=== PATIENT | female | born 1960 | race Caucasian/White ===

== ENCOUNTER 2020-06-28 14:26 | Emergency (ER) | payer BC, SELFPAY ==
[2020-06-28 14:46] VITALS: BP 124/89; PULSE 97; RESP 16; TEMP 36.8; O2SAT 97; BMI 28.3
--- NOTE | 2020-06-28 16:30 | W.ED.NAVMDI ---
Documented by User: [email or web address] Parker 06/29/20 07:23 HPI - Nausea/Vomiting/Diarrhea General: Chief complaint: Nausea/Vomiting/Diarrhea Stated complaint: VOMITING Time Seen by Provider: 06/28/20 15:33 History of Present Illness: HPI Narrative: 59-year-old female patient presents to the emergency department with acute onset of nausea vomiting. Reports started at 5 AM. Spontaneous onset. 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 She reports previous symptoms in the past, diagnosed with gastroenteritis. 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 She reports has to have a COVID test before she is able to return to work. MD elicited complaint: nausea, vomiting and abdominal pain Onset (ago): hour(s) (12) Description of vomiting: bilious Associated nausea: Yes Associated abdominal pain: Yes Location of pain: Diffuse Pain consistency: intermittent Severity: mild Pain scale (0-10): 2 Quality: aching Exacerbating factors: eating, vomiting and movement Relieving factors: rest Associated symtoms: Reports anorexia and nausea; Denies chest pain, diaphoresis, dysuria, headache(s) or palpitations Review of Systems General: Reports: 10 or more systems reviewed and unremarkable except in HPI and below Const: Denies: fever(s), chills or diaphoresis Eyes: Denies: blurry vision or eye redness ENMT: Denies: throat pain, dental pain or disequilibrium Card: Denies: chest pain, palpitations or irregular heart rhythm Resp: Denies: dyspnea, productive cough, non-productive cough or wheezing GI: Reports: abdominal pain, nausea and vomiting : Denies: difficulty voiding or dysuria Musc: Denies: back pain Skin/Breast: Denies: rash or pruritus Neuro: Denies: headache(s), weakness in extremities or behavioral changes Jose/Lymph: Denies: easy bruising Physical Exam Const: COMMON NORMALS: no acute distress, patient oriented x3 and alert GENERAL APPEARANCE: cooperative and well kempt ORIENTATION/CONSCIOUSNESS: Yes awake, Yes oriented to person, Yes oriented to place and Yes oriented to time HENMT: COMMON NORMALS: normocephalic, Normal external nose present and moist oral mucous membranes HEAD & SCALP: normocephalic NOSE: Normal external nose present Eye: COMMON NORMALS: Equal, round and reactive pupils present and EOMs intact bilaterally GENERAL EYE: appearance normal, both eyes and all related structures PUPIL: Yes Equal, round and reactive pupils present Neck/C-Spine: COMMON NORMALS: full ROM and no lymphadenopathy GENERAL: Yes normal visual inspection and Yes trachea midline CERVICAL SPINE: Yes cervical ROM normal Lymph: LYMPHATIC: no lymphadenopathy noted Chest: COMMONS NORMALS: normal inspection of the chest Resp: COMMON NORMALS: normal respiratory effort and clear to auscultation bilaterally AUSCULTATION: clear to auscultation bilaterally Cardio: COMMON NORMALS: regular rhythm, S1 normal heart sound present and S2 normal heart sound present RHYTHM: regular rhythm HEART SOUNDS: S1 normal heart sound present and S2 normal heart sound present GI: COMMON NORMALS: Soft to palpation INSPECTION: Yes normal to inspection AUSCULTATION: Yes Hypoactive bowel sounds present PALPATION: Yes Soft to palpation and Yes Tenderness to palpation present (GI) (Generalized, mild tenderness over the belly) : COMMON NORMALS: Yes no CVA tenderness BLADDER/KIDNEY EXAM: Yes no CVA tenderness Back/Pelvis: COMMON NORMALS: no CVA tenderness and thoracic and lumbar spine normal to inspection Extremity: COMMON NORMALS: normal to inspection and capillary refill normal Neuro: COMMON NORMALS: patient oriented x3 and no focal motor deficits SENSORIUM/ORIENTATION: Yes alert, Yes oriented to person, Yes oriented to place and Yes oriented to time Psych: COMMON NORMALS: mental status grossly normal, Normal thought process present and cooperative APPEARANCE: Yes well kempt ACTIVITY/MOTOR BEHAVIOR: Yes appropriate eye contact THOUGHT PROCESS: Normal thought process present Skin: COMMON NORMALS: no rashes or lesions noted and turgor normal GENERAL SKIN EXAM: no rashes or lesions noted and turgor normal Course ED course: 59-year-old female patient presents to the emergency department with nausea vomiting, onset at 5 AM this morning, labs and IV fluids have been ordered, labs pending, transfer of care to ANGELINA Cazares. Vital Signs: Vital signs: Vital Signs Temperature 98.4 F 06/28/20 23:22 Pulse Rate 84 06/28/20 23:22 Respiratory Rate 18 06/28/20 23:22 Blood Pressure 133/76 06/28/20 23:22 Pulse Oximetry 97 06/28/20 23:22 MDM - Nausea/Vomiting/Diarrhea Lab Data: Labs: Lab Results 06/28/20 06/28/20 06/28/20 Range/Units 17:32 17:48 17:48 WBC 8.6 (4.0-10.0) 10^3/ uL RBC 5.10 (4.1-5.3) 10^6/u L Hgb 15.2 (11.5-15.3) g/dL Hct 46.3 (37.0-47.0) % MCV 90.8 (81-99) fL MCH 29.8 (28.0-34.0) pg MCHC 32.8 (30.0-36.0) g/dL RDW 12.6 (12.1-15.1) % Plt Count 322 (130-400) 10^3/c mm MPV 9.9 (7.4-10.4) fL Neut % (Auto) 76.2 % Lymph % (Auto) 18.6 % [place] % (Auto) 4.1 % Eos % (Auto) 0.1 % Baso % (Auto) 0.5 % Neut # (Auto) 6.54 (1.8-7.7) 10^3/u L Lymph # (Auto) 1.6 (0.8-4.8) 10^3/u L [place] # (Auto) 0.4 (0.2-0.9) 10^3/u L Eos # (Auto) 0.0 (0.0-0.8) 10^3/u L Baso # (Auto) 0.0 (0.0-0.1) 10^3/u L Nucleated RBC % (a uto) 0 % Nucleated RBCs # 0.0 /100WBC Sodium 143 (136-145) mmol/L Potassium 3.8 (3.5-5.1) mmol/L Chloride 103 (98-107) mmol/L Carbon Dioxide 24 (22-29) mmol/L Anion Gap 19.8 H (5-19) BUN 11 (6-20) mg/dL Creatinine 0.6 (0.5-0.9) mg/dL GFR Calculation 103.0 (90-130) mL/min Glucose 110 (65-115) mg/dL Calculated Osmolal ity 296 H (285-295) mOsm/k g Calcium 10.3 (8.5-10.5) mg/dL Total Bilirubin 0.4 (0.15-1.2) mg/dL AST 19 (0-32) U/L ALT 15 (0-33) U/L Alkaline Phosphata se 70 (35-105) IU/L Total Protein 7.4 (6.6-8.7) g/dL Albumin 4.8 (3.5-5.2) g/dL Globulin 2.6 (1.3-4.6) g/dL Lipase 37 (13-60) U/L Urine Color Yellow (Yellow) Urine Appearance Clear (CLEAR) Urine pH 9 H (5-7) Ur Specific Gravit y 1.015 (1.005-1.030) Urine Protein Neg (Negative) Urine Glucose (UA) Norm (Normal) Urine Ketones 2+ H (Negative) Urine Blood 2+ H (Negative) Urine Nitrate Negative (Negative) Urine Bilirubin Neg (Negative) Prot Sulfosalicyli c Acd Negative (Negative) Urine Urobilinogen Norm (Negative) mg/dL Ur Leukocyte Ally ase Negative (Negative) Urine RBC Rare (0-2) /hpf Urine WBC Rare (0-5) /hpf Ur Squamous Epith Cells 0-4 H (0-5) /hpf Amorphous Sediment 1+ /hpf Urine Bacteria Trace (NONE) /hpf Urine Mucus 1+ /hpf Discharge Plan Discharge Patient Disposition: Home Clinical Impression: Viral syndrome, Encounter for screening laboratory testing for COVID-19 virus Condition: Stable Prescriptions: New ondansetron 4 mg tablet,disintegrating 4 mg PO Q8H Qty: 21 RF: 0 No Action methocarbamol 500 mg tablet 500 mg PO TID 20 Days Qty: 60 RF: 1 simvastatin 20 mg tablet 20 mg PO DAILY 90 Days Qty: 90 RF: 3 albuterol sulfate [ProAir HFA] 90 mcg/actuation HFA aerosol inhaler 2 puff INHALATION Q6H PRN (Reason: shortness of breath or wheezing) 30 Days Qty: 18 RF: 11 naproxen [Naprosyn] 500 mg tablet 500 mg PO BID 30 Days Qty: 60 RF: 5 Discharge Orders: Discharge Order (Routine); Ordered 06/28/20 Ordered By: Davon Saleem Referrals: Omi Shelton MD [Primary Care Provider] - Discharge Diet: Advance as tolerated and Clear Liquid Discharge Activity: Increase activity as tolerated Patient Instructions: Viral Syndrome (ED) Activity Restrictions/Additional Instructions: Follow-up with medical provider as directed in 5-7 days. Tell your PCP about CT of the abdomen results showing 1.5 cm mass on the right kidney. Further outpatient MR imaging is recommended. Take medications as prescribed. Drink plenty of fluids and stay hydrated. Return to the ER or your medical provider if condition worsens. Please read and understand discharge instructions. If any questions, please ask. COVID testing was performed and sent to lab and results will be back in 2 to 3 days. Self quarantine for the next 3 days or up to 12 days pending on COVID testing results. Contact [facility] in 2 to 3 days to get results or [facility] will contact you with results. Take ibuprofen or Tylenol for fevers. Symptom management with tzwo-wch-pogxkie cough and nasal decongestant meds. Discharge Date/Time: 06/28/20 23:05 Sign Out Sign Out Data: Patient Sign Out occurred on 06/28/20 at 17:09. Patient's care was discussed, and care was transferred from to [facility] Cazares. 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 Course Reevaluation(s): Reevaluation #1: After couple doses of Zofran and Reglan patient's nausea did improve. She was able to drink some water and keep it down. Time: 22:21 Vital Signs: Vital signs: Vital Signs Temperature 98.4 F 06/28/20 23:22 Pulse Rate 84 06/28/20 23:22 Respiratory Rate 18 06/28/20 23:22 Blood Pressure 133/76 06/28/20 23:22 Pulse Oximetry 97 06/28/20 23:22 MDM - Nausea/Vomiting/Diarrhea MDM Narrative: Medical decision making narrative: 59-year-old female patient presents to the emergency department with nausea vomiting, onset at 5 AM this morning, labs and IV fluids have been ordered, labs pending, transfer of care to ANGELINA Cazares CBC, CMP and UA were unremarkable. Lipase 37. Patient's work wanted her to get Covid 19 testing before she could return. COVID-19 testing performed and sent to lab. IV fluids and multiple doses of Zofran and then some Reglan were used for nausea and symptoms improved. Patient had no episodes of emesis while here in the ED after getting antinausea meds. CT of abdomen was performed and showed no acute findings. Radiologist notated 1.5 cm lesion on right kidney and recommended further evaluation with an outpatient MRI. Patient was diagnosed with a viral syndrome and sent home with a prescription for Zofran. Patient told to self quarantine for the next 3 to 14 days pending COVID-19 results. Told patient about the lesion on right kidney and told her to follow-up with her PCP to get lesion further evaluated within the next 5 to 7 days. Return to ED precautions given. Patient understood and agreed with plan. Lab Data: Attestation: I reviewed the patient's lab results. Labs: Lab Results 06/28/20 06/28/20 06/28/20 Range/Units 17:32 17:48 17:48 WBC 8.6 (4.0-10.0) 10^3/ uL RBC 5.10 (4.1-5.3) 10^6/u L Hgb 15.2 (11.5-15.3) g/dL Hct 46.3 (37.0-47.0) % MCV 90.8 (81-99) fL MCH 29.8 (28.0-34.0) pg MCHC 32.8 (30.0-36.0) g/dL RDW 12.6 (12.1-15.1) % Plt Count 322 (130-400) 10^3/c mm MPV 9.9 (7.4-10.4) fL Neut % (Auto) 76.2 % Lymph % (Auto) 18.6 % [place] % (Auto) 4.1 % Eos % (Auto) 0.1 % Baso % (Auto) 0.5 % Neut # (Auto) 6.54 (1.8-7.7) 10^3/u L Lymph # (Auto) 1.6 (0.8-4.8) 10^3/u L [place] # (Auto) 0.4 (0.2-0.9) 10^3/u L Eos # (Auto) 0.0 (0.0-0.8) 10^3/u L Baso # (Auto) 0.0 (0.0-0.1) 10^3/u L Nucleated RBC % (a uto) 0 % Nucleated RBCs # 0.0 /100WBC Sodium 143 (136-145) mmol/L Potassium 3.8 (3.5-5.1) mmol/L Chloride 103 (98-107) mmol/L Carbon Dioxide 24 (22-29) mmol/L Anion Gap 19.8 H (5-19) BUN 11 (6-20) mg/dL Creatinine 0.6 (0.5-0.9) mg/dL GFR Calculation 103.0 (90-130) mL/min Glucose 110 (65-115) mg/dL Calculated Osmolal ity 296 H (285-295) mOsm/k g Calcium 10.3 (8.5-10.5) mg/dL Total Bilirubin 0.4 (0.15-1.2) mg/dL AST 19 (0-32) U/L ALT 15 (0-33) U/L Alkaline Phosphata se 70 (35-105) IU/L Total Protein 7.4 (6.6-8.7) g/dL Albumin 4.8 (3.5-5.2) g/dL Globulin 2.6 (1.3-4.6) g/dL Lipase 37 (13-60) U/L Urine Color Yellow (Yellow) Urine Appearance Clear (CLEAR) Urine pH 9 H (5-7) Ur Specific Gravit y 1.015 (1.005-1.030) Urine Protein Neg (Negative) Urine Glucose (UA) Norm (Normal) Urine Ketones 2+ H (Negative) Urine Blood 2+ H (Negative) Urine Nitrate Negative (Negative) Urine Bilirubin Neg (Negative) Prot Sulfosalicyli c Acd Negative (Negative) Urine Urobilinogen Norm (Negative) mg/dL Ur Leukocyte Ally ase Negative (Negative) Urine RBC Rare (0-2) /hpf Urine WBC Rare (0-5) /hpf Ur Squamous Epith Cells 0-4 H (0-5) /hpf Amorphous Sediment 1+ /hpf Urine Bacteria Trace (NONE) /hpf Urine Mucus 1+ /hpf Imaging Data^: CT Abd/Pel: Attestation: I personally reviewed and interpreted this imaging study as follows: Radiologist's impression: [address] [address] [address] Scan Report Signed Patient: Mackenzie Rodriguez Unit #: [id number] : 1960 Age/Sex: 59 / F ADM Date: 06/28/20 Loc: ER Room/Bed: Attending Dr: Ordering Provider/Ordering MD: Davon Saleem Date of Service: 06/28/20 Procedure(s): CT abdomen pelvis w con* [id number] Accession Number(s): [id number] Report Number: [id number] PROCEDURE INFORMATION: Exam: CT Abdomen And Pelvis With Contrast Exam date and time: 06/28/2020 8:40 PM Age: 59 years old Clinical indication: Abdominal pain; Patient HX: Low abd pain since am, n/v TECHNIQUE: Imaging protocol: Computed tomography of the abdomen and pelvis with intravenous contrast. Radiation optimization: All CT scans at this facility use at least one of these dose optimization techniques: automated exposure control; mA and/or kV adjustment per patient size (includes targeted exams where dose is matched to clinical indication); or iterative reconstruction. Contrast material: OMNI 300; Contrast volume: 95 ml; Contrast route: INTRAVENOUS (IV); COMPARISON: No relevant prior studies available. RADIATION DOSE METRICS: Total DLP (mGy-cm): 906.57 FINDINGS: Lungs: Minimal dependent airspace disease on the right favored to represent atelectasis although infiltrate is also possible. Mediastinal space: Small hiatal hernia. Liver: Normal. No mass. Gallbladder and bile ducts: Normal. No calcified stones. No ductal dilation. Pancreas: Normal. No ductal dilation. Spleen: Normal. No splenomegaly. Adrenals: Normal. No mass. Kidneys and ureters: 1.4 cm intermediate density lesion lower right kidney is indeterminate. Mild scar suggested lower right kidney. No hydronephrosis. Stomach and bowel: Unremarkable. No obstruction. No mucosal thickening. Appendix: No evidence of appendicitis. Intraperitoneal space: Unremarkable. No free air. No significant fluid collection. Vasculature: Minimal vascular calcifications are noted. No findings of abdominal aortic aneurysm. Lymph nodes: Unremarkable. No enlarged lymph nodes. Urinary bladder: Unremarkable as visualized. Reproductive: Unremarkable as visualized. Bones/joints: No acute fracture. Soft tissues: Unremarkable. CT/CT abdomen pelvis w con* [id number] IMPRESSION: No acute findings. Indeterminate lower right renal lesion; recommend MR without and with contrast or CT without and with contrast. MR is preferred for masses under 1.5 cm. Additional details as above. Radiation Dose CTDIVOL = (mGy): DLP = 906.57 (mGy-cm) Dictated By: Torres Giraldo MD Signed By: Torres Giraldo MD Signed Date/Time: 06/28/202136 DD/ 35 Discharge Plan Discharge Patient Disposition: Home Clinical Impression: Viral syndrome, Encounter for screening laboratory testing for COVID-19 virus Condition: Stable Prescriptions: New ondansetron 4 mg tablet,disintegrating 4 mg PO Q8H Qty: 21 RF: 0 No Action methocarbamol 500 mg tablet 500 mg PO TID 20 Days Qty: 60 RF: 1 simvastatin 20 mg tablet 20 mg PO DAILY 90 Days Qty: 90 RF: 3 albuterol sulfate [ProAir HFA] 90 mcg/actuation HFA aerosol inhaler 2 puff INHALATION Q6H PRN (Reason: shortness of breath or wheezing) 30 Days Qty: 18 RF: 11 naproxen [Naprosyn] 500 mg tablet 500 mg PO BID 30 Days Qty: 60 RF: 5 Discharge Orders: Discharge Order (Routine); Ordered 06/28/20 Ordered By: Davon Saleem Referrals: Omi Shelton MD [Primary Care Provider] - Discharge Diet: Advance as tolerated and Clear Liquid Discharge Activity: Increase activity as tolerated Patient Instructions: Viral Syndrome (ED) Activity Restrictions/Additional Instructions: Follow-up with medical provider as directed in 5-7 days. Tell your PCP about CT of the abdomen results showing 1.5 cm mass on the right kidney. Further outpatient MR imaging is recommended. Take medications as prescribed. Drink plenty of fluids and stay hydrated. Return to the ER or your medical provider if condition worsens. Please read and understand discharge instructions. If any questions, please ask. COVID testing was performed and sent to lab and results will be back in 2 to 3 days. Self quarantine for the next 3 days or up to 12 days pending on COVID testing results. Contact [facility] in 2 to 3 days to get results or [facility] will contact you with results. Take ibuprofen or Tylenol for fevers. Symptom management with [id number]-csgqicm cough and nasal decongestant meds. Discharge Date/Time: 06/28/20 23:05 Sign Out Sign Out Data: Patient Sign Out occurred on 06/28/20 at 17:09. Patient's care was discussed, and care was transferred from to ANGELINA Cazares. Coding Level of Care Code ED Pipeline Superintendent for Binta Billy Exam Comprehensive
[2020-06-28 18:03] LABS: Basophils % 0.5 %; Eosinophils % 0.1 %; Hematocrit 46.3 % (37.0-47.0); Hemoglobin 15.2 g/dL (11.5-15.3); Lymphocytes # 1.6 10^3/uL (0.8-4.8); Lymphocytes % 18.6 %; Mean Corpuscular HGB Conc 32.8 g/dL (30.0-36.0); Mean Corpuscular Hemoglobin 29.8 pg (28.0-34.0); Mean Corpuscular Volume 90.8 fL (81-99); Mean Platelet Volume 9.9 fL (7.4-10.4); Monocytes # 0.4 10^3/uL (0.2-0.9); Monocytes % 4.1 %; Neutrophils # 6.54 10^3/uL (1.8-7.7); Neutrophils % 76.2 %; Nucleated Red Blood Cells % 0 %; Platelet Count 322 10^3/cmm (130-400); Red Cell Distribution Width 12.6 % (12.1-15.1); White Blood Count 8.6 10^3/uL (4.0-10.0)
[2020-06-28] MEDS: ondansetron 2 mg/ML SDV 2 mL 4 MG IVP ×2 (18:39→21:35)
[2020-06-28] MEDS: sodium chloride 0.9% 500 ML 999 ML IV (18:40)
[2020-06-28 18:49] LABS: Alanine Aminotransferase 15 U/L (0-33); Albumin Level 4.8 g/dL (3.5-5.2); Alkaline Phosphatase 70 IU/L (35-105); Anion Gap 19.8 (5-19); Aspartate Amino Transferase 19 U/L (0-32); Blood Urea Nitrogen 11 mg/dL (6-20); Calcium 10.3 mg/dL (8.5-10.5); Carbon Dioxide 24 mmol/L (22-29); Chloride 103 mmol/L (98-107); Creatinine Clr Calc Pharmacy 102.4889; Globulin 2.6 g/dL (1.3-4.6); Glucose 110 mg/dL (65-115); Lipase 37 U/L (13-60); Osmolality Calculated 296 mOsm/kg (285-295); Potassium 3.8 mmol/L (3.5-5.1); Sodium 143 mmol/L (136-145); Total Bilirubin 0.4 mg/dL (0.15-1.2); Total Protein 7.4 g/dL (6.6-8.7)
[2020-06-28 18:51] LABS: Add Urine Microscopic? YES; Bilirubin Urine Neg (Negative); Blood Urine 2+ (Negative); Glucose Urine UA Norm (Normal); Ketones Urine 2+ (Negative); Leukocyte Esterase Urine Negative (Negative); Nitrate Urine Negative (Negative); Protein Urine Neg (Negative); Specific Gravity, Urine 1.015 (1.005-1.030); Sulfosalicylic Acid Urine Negative (Negative); Urine Appearance Clear (CLEAR); Urine Color Yellow (Yellow); Urobilinogen Urine Norm (Negative); pH Urine 9 (5-7)
[2020-06-28 18:52] LABS: Add Urine Culture? No; Amorphous Sediment Urine 1+ /hpf; Bacteria Urine TRACE /hpf; Mucus Urine 1+ /hpf; RBC Urine RARE /hpf (0-2); Squamous Epithelial Cell Urine 0-4 /hpf (0-5); WBC Urine RARE /hpf (0-5)
[2020-06-28] MEDS: metoclopramide 5 mg/mL SDV 2 mL 10 MG IVP (20:15)
[2020-06-28] MEDS: sodium chloride 0.9% 1,000 ML 999 ML IV (20:16)
--- NOTE | 2020-06-28 20:38 | CTR_ITS ---
PROCEDURE INFORMATION: Exam: CT Abdomen And Pelvis With Contrast Exam date and time: 06/28/2020 8:40 PM Age: 59 years old Clinical indication: Abdominal pain; Patient HX: Low abd pain since am, n/v TECHNIQUE: Imaging protocol: Computed tomography of the abdomen and pelvis with intravenous contrast. Radiation optimization: All CT scans at this facility use at least one of these dose optimization techniques: automated exposure control; mA and/or kV adjustment per patient size (includes targeted exams where dose is matched to clinical indication); or iterative reconstruction. Contrast material: OMNI 300; Contrast volume: 95 ml; Contrast route: INTRAVENOUS (IV); COMPARISON: No relevant prior studies available. RADIATION DOSE METRICS: Total DLP (mGy-cm): 906.57 FINDINGS: Lungs: Minimal dependent airspace disease on the right favored to represent atelectasis although infiltrate is also possible. Mediastinal space: Small hiatal hernia. Liver: Normal. No mass. Gallbladder and bile ducts: Normal. No calcified stones. No ductal dilation. Pancreas: Normal. No ductal dilation. Spleen: Normal. No splenomegaly. Adrenals: Normal. No mass. Kidneys and ureters: 1.4 cm intermediate density lesion lower right kidney is indeterminate. Mild scar suggested lower right kidney. No hydronephrosis. Stomach and bowel: Unremarkable. No obstruction. No mucosal thickening. Appendix: No evidence of appendicitis. Intraperitoneal space: Unremarkable. No free air. No significant fluid collection. Vasculature: Minimal vascular calcifications are noted. No findings of abdominal aortic aneurysm. Lymph nodes: Unremarkable. No enlarged lymph nodes. Urinary bladder: Unremarkable as visualized. Reproductive: Unremarkable as visualized. Bones/joints: No acute fracture. Soft tissues: Unremarkable. CT/CT abdomen pelvis w con* [id number] IMPRESSION: No acute findings. Indeterminate lower right renal lesion; recommend MR without and with contrast or CT without and with contrast. MR is preferred for masses under 1.5 cm. Additional details as above. Radiation Dose CTDIVOL = (mGy): DLP = 906.57 (mGy-cm)
[2020-06-28] MEDS: iohexol 300 mg/mL 100 mL Btl IV (21:01)
[2020-06-28] MEDS: ondansetron 4 MG Tablet PO (23:05)
[2020-06-28 23:22] VITALS: BP 133/76; PULSE 84; RESP 18; TEMP 36.9; O2SAT 97
--- NOTE | 2020-06-30 09:48 | PC.NURSE ---
Patients swab was performed and sent to lab, however was not collected in system. Lab preserved swab in refrigerator and being sent out today after being marked collected
[2020-07-02 12:22] LABS: Quest SARS-CoV-2 RNA NOT DETECTED (NOT DETECTED)
--- NOTE | 2020-07-02 17:05 | PC.NURSE ---
Pt called and notified of negative COVID result.
== END 2020-06-28 23:05 | disposition home or self-care (01) ==
PROVIDERS: Nurse Practitioner Family; Emergency Provider Physician Assistant; Family Provider Family Medicine; PCP Family Medicine
DX: B34.9 Viral infection, unspecified (principal); Z20.828 Contact with and (suspected) exposure to other viral communicable diseases
CPT/HCPCS: 12345; 74177; 80053; 81001; 83690; 85025; 87635; 96361; 96374; 96375; 96376; 99282; 99283; 99284; J2405; J2765; J7030; J7040; Q0162; Q9967

== ENCOUNTER → 2021-01-24 15:44 | Outpatient (BNVA) | payer BC, SELFPAY | PROVIDERS: Family Provider Family Medicine; PCP Family Medicine; Visit Provider Family Medicine | DX: E78.00 Pure hypercholesterolemia, unspecified (principal); N28.89 Other specified disorders of kidney and ureter; L84 Corns and callosities; K29.00 Acute gastritis without bleeding | CPT/HCPCS: 80053; 80061; 85025 ==

== ENCOUNTER 2021-02-11 13:58 | Outpatient (CLI) | payer BC, SELFPAY ==
[2021-02-11] MEDS: iohexol 300 mg/mL 100 mL Btl IV (14:30)
--- NOTE | 2021-02-11 15:00 | CT_ITS ---
WS: [id number] CT ABDOMEN PELVIS TECHNIQUE: Contrast-enhanced CT of the abdomen and pelvis with coronal and sagittal reformatted image s. CLINICAL INFORMATION: follow up from abnormal CT 2019 COMPARISON: CT June 28, 2020 DLP: 1045.[address] scans at [facility] use at least one of these dose optimization techniques: automat ed exposure control; mA and/or kV adjustment per patient size (includes targeted exams where dose is matched to clinical indication); or iterative reconstruction. FINDINGS: Mild diffuse fatty infiltration the liver. Normal spleen. Normal gallbladder. Lung bases are well aer ated. Subsegmental atelectasis right lower lobe. Small esophageal hiatal hernia. Adrenal glands are normal. Normal renal parenchymal enhancement. No h ydronephrosis. Previously described indeterminate right lower pole renal lesion measuring 1.3 cm is unchanged since June 28, 2020. Normal sigmoid colon. No evidence of small or large bowel obstruction. Tiny fat-containing umbilical hernia. Normal caliber abdominal aorta. No abdominal or pelvic lymphadenopathy. No inguinal lymphaden opathy. Mild spondylitic changes lumbar spine. CT/CT abdomen pelvis w con* [id number] IMPRESSION: 1. Previous described right lower pole renal lesion measuring 1.3 cm is unchan ged. This can be further evaluated with ultrasound but may be too small to visu kenneth. Otherwise recommend continued annual CT surveillance. 2. No hydronephrosis in either kidney. 3. Mild diffuse fatty infiltration liver. 4. Small esophageal hiatal hernia. 5. No abdominal or pelvic lymphadenopathy.
== END 2021-02-11 13:59 | disposition home or self-care (01) ==
LOC: RADWPI 14:03
PROVIDERS: PCP Family Medicine; Visit Provider Family Medicine
DX: R93.5 Abnormal findings on diagnostic imaging of other abdominal regions, including retroperitoneum (principal); K44.9 Diaphragmatic hernia without obstruction or gangrene; K76.0 Fatty (change of) liver, not elsewhere classified
CPT/HCPCS: 74177; Q9967

== ENCOUNTER → 2022-01-30 14:59 | Outpatient (BNVA) | payer BC, SELFPAY | PROVIDERS: PCP Family Medicine; Visit Provider Family Medicine | DX: E78.00 Pure hypercholesterolemia, unspecified (principal); I10 Essential (primary) hypertension; Z12.11 Encounter for screening for malignant neoplasm of colon; Z86.010 Personal history of colon polyps; Z00.00 Encounter for general adult medical examination without abnormal findings | CPT/HCPCS: 80053; 80061; 85025 ==

== ENCOUNTER 2022-08-21 09:31 | Outpatient (CLI) | payer OTHER, SELFPAY ==
--- NOTE | 2022-08-21 09:45 | XR_ITS ---
WS: [id number] EXAMINATION: XR hip LT 2-3V wo/w pel* [id number] DATE: 08/21/2022 9:47 AM CLINICAL HISTORY: 9 month history of left hip pain TECHNIQUE: Frontal internal/external rotation views of the left hip were obtained. COMPARISON: None X-RAY FINDINGS: There are no fractures or dislocations. Normal motion with internal/external rotation is present. No degenerative changes. XR/XR hip LT 2-3V wo/w pel* [id number] IMPRESSION: 1. No fractures or dislocations of the left hip. 2. Normal motion with internal/external rotation.
== END 2022-08-21 09:32 | disposition home or self-care (01) ==
LOC: RAD 09:34
PROVIDERS: PCP Family Medicine; Visit Provider Family Medicine
DX: M25.552 Pain in left hip (principal)
CPT/HCPCS: 73502

== ENCOUNTER 2022-09-20 07:35 | Day surgery (SDC) | payer OTHER, SELFPAY ==
[2022-09-15 13:47] VITALS: BMI 26.6
[2022-09-20 07:57] VITALS: PULSE 84; RESP 18; TEMP 36.5; O2SAT 99
[2022-09-20] MEDS: sodium chloride 0.9% 1,000 ML 30 ML IV (08:04)
--- NOTE | 2022-09-20 08:14 | P.HP_ITS ---
Providers/Chief Complaint Primary Care Provider: Omi Shelton MD Chief Complaint: Z12.11 History of Present Illness Mackenzie Rodriguez is a 62 year old female here for colonoscopy Medications/Allergies Home Medications Medication Instructions Recorded Confirmed Last Taken Type famotidine 20 mg tablet 20 mg PO BID #180 tabs 03/08/22 09/20/22 09/18/22 Rx naproxen 500 mg tablet 500 mg PO BID PRN pain 60 days 04/25/22 09/20/22 09/18/22 Rx #120 tabs hydrocodone 5 mg-acetaminophen 325 1 tab PO Q6H PRN pain 7 days #28 08/21/22 09/15/22 Unknown Rx mg tablet tabs prednisone 20 mg tablet 20 mg PO DAILY #20 tabs 08/21/22 09/20/22 09/18/22 Rx albuterol sulfate 90 mcg/actuation 2 puff inhalation Q6H PRN 09/15/22 09/20/22 09/20/22 History aerosol inhaler Shortness Of Breath cyclobenzaprine 10 mg tablet 10 mg PO BID PRN Muscle Spasm 09/15/22 09/20/22 09/18/22 History lisinopril 10 mg tablet 10 mg PO DAILY 09/15/22 09/20/22 09/18/22 History ondansetron 4 mg disintegrating 4 mg PO Q8H PRN Nausea 09/15/22 09/20/22 09/18/22 History tablet rosuvastatin 5 mg tablet 5 mg PO DAILY 09/15/22 09/20/22 09/18/22 History Allergies Allergy/AdvReac Type Severity Reaction Status Date / Time No Known Allergies Allergy Verified 09/15/22 13:42 PFSH Acute PFSH: Medical History COPD (chronic obstructive pulmonary disease) Essential hypertension Hypercholesteremia Osteoarthritis of left hip Surgical History History of total hysterectomy History of tubal ligation Hx of colonoscopy with polypectomy 10 yrs ago Family History Mother Diabetes Brother Diabetes Social History Smoking and tobacco status: former smoker Alcohol intake: never Vitals/I&O/Wt Last Vital Signs Temp 97.7 F 09/20/22 07:57 Pulse 84 09/20/22 07:57 Resp 18 09/20/22 07:57 Pulse Ox 99 09/20/22 07:57 O2 Del Method 09/20/22 07:57 A&P Assessment and plan (1) Colon cancer screening: Plan Colonoscopy Attestations Medical Necessity Statement*: Home Coding Level of Care Code Acute Crystal Mounter for Chg Fwd Diagnoses Colon cancer screening Z12.11
[2022-09-20 08:18] VITALS: BP 175/105
--- NOTE | 2022-09-20 08:19 | ANES.PREANE2 ---
Pre-Anesthetic Assessment Height/Weight: Height 1.63 m Weight 70.307 kg Temp Pulse Resp BP Pulse Ox O2 Del Method 97.7 F 84 18 175/105 99 09/20/22 07:57 09/20/22 07:57 09/20/22 07:57 09/20/22 08:18 09/20/22 07:57 09/20/22 07:57 Preop Diagnosis: screening Operation Date: 09/20/22 09:00 Proposed Procedures p Colonoscopy 45555,Z12.11(Not Applicable) - Osvaldo Samuels DO Familial anesthetic complications: none Was Beta Raissa taken within 24 hours: N/A Was Clonidine taken within 24 hours: N/A Last intake: Intake Last Liquid Date 09/19/22 Last Liquid Time 21:00 Last Solid Date 09/18/22 Last Solid Time 20:00 Last Intake: 21:00 Social Tobacco (stop 3 years ago) and No alcohol 1ppd pack(s) per day 40+ pack years Exam alert, oriented x 3, clear to auscultation bilaterally and regular rate & rhythm Airway Submandibular: within normal limits Cervical ROM: within normal limits Mallampati: Class II Dentition: false (upper and lower) Pulmonary None reported seasonal use of albuterol CV/HEM Hypertension None reported Hepatic None reported GI Gastroesophageal Reflux Disease (controlled) Metabolic None reported Musc/skel Lower Back Pain (Left leg) Neuropsych Anxiety and Depression Anesthetic Plan ASA status: 3 Anesthesia: MAC Risk of > 500 ml blood loss (7ml/kg in children): No Medications/Allergies Home Medications Medication Instructions Recorded Confirmed Last Taken Type famotidine 20 mg tablet 20 mg PO BID #180 tabs 03/08/22 09/20/22 09/18/22 Rx naproxen 500 mg tablet 500 mg PO BID PRN pain 60 days 04/25/22 09/20/22 09/18/22 Rx #120 tabs hydrocodone 5 mg-acetaminophen 325 1 tab PO Q6H PRN pain 7 days #28 08/21/22 09/15/22 Unknown Rx mg tablet tabs prednisone 20 mg tablet 20 mg PO DAILY #20 tabs 08/21/22 09/20/22 09/18/22 Rx albuterol sulfate 90 mcg/actuation 2 puff inhalation Q6H PRN 12/30/22 01/04/23 01/04/23 History aerosol inhaler Shortness Of Breath cyclobenzaprine 10 mg tablet 10 mg PO BID PRN Muscle Spasm 09/15/22 09/20/22 09/18/22 History lisinopril 10 mg tablet 10 mg PO DAILY 09/15/22 09/20/22 09/18/22 History ondansetron 4 mg disintegrating 4 mg PO Q8H PRN Nausea 09/15/22 09/20/22 09/18/22 History tablet rosuvastatin 5 mg tablet 5 mg PO DAILY 09/15/22 09/20/22 09/18/22 History Allergies Allergy/AdvReac Type Severity Reaction Status Date / Time No Known Allergies Allergy Verified 09/15/22 13:42 Current Medications Generic Name Dose Route Start Last Admin Trade Name Freq PRN Reason Stop Dose Admin Sodium Chloride 1,000 mls @ 30 mls/hr 09/20/22 07:45 09/20/22 08:04 Sodium Chloride 0.9% IV 09/21/22 07:44 30 mls/hr .Q24H JEROME Administration PFSH Anesthesia Medical History COPD (chronic obstructive pulmonary disease) Essential hypertension Hypercholesteremia Osteoarthritis of left hip Surgical History History of total hysterectomy History of tubal ligation Hx of colonoscopy with polypectomy 10 yrs ago Family History Mother Diabetes Brother Diabetes Social History Smoking and tobacco status: former smoker Alcohol intake: never Data Anesthesia Cardiac Studies: No Data to Display
[2022-09-20 08:57] VITALS: BP 109/80; PULSE 86; RESP 16; TEMP 36.3; O2SAT 99
[2022-09-20 09:12] VITALS: BP 138/91; PULSE 79; RESP 16; O2SAT 96
--- NOTE | 2022-09-20 17:34 | ANE.PACU2 ---
Inpatient post-anesthesia follow up: Airway intact: Yes Vital signs: Temperature 97.4 F Pulse Rate 79 Respiratory Rate 16 Blood Pressure 138/91 Pulse Oximetry 96 Oxygen Delivery Me thod Room Air Oxygen Flow Rate Fraction of Inspir ed Oxygen Hydration adequate: Yes Nausea and vomiting: No Pain level: 1 Mental status: Baseline
== END 2022-09-20 09:25 | disposition home or self-care (01) ==
PROVIDERS: PCP Family Medicine; Visit Provider Surgery
PROC: 0DJD8ZZ Inspection of Lower Intestinal Tract, Via Natural or Artificial Opening Endoscopic (ICD-10-PCS; CPT 45378; principal; 2022-09-20 09:00)
DX: Z12.11 Encounter for screening for malignant neoplasm of colon (principal); D12.4 Benign neoplasm of descending colon; D12.8 Benign neoplasm of rectum; J44.9 Chronic obstructive pulmonary disease, unspecified; I10 Essential (primary) hypertension; E78.00 Pure hypercholesterolemia, unspecified; Z87.891 Personal history of nicotine dependence
CPT/HCPCS: 45385; 88305; J2704; J3010; J7030

== ENCOUNTER 2023-01-01 14:46 | Outpatient (CLI) | payer OTHER, SELFPAY ==
--- NOTE | 2023-01-01 15:15 | MR_ITS ---
WS: [id number] MRI LUMBAR SPINE NONCONTRAST TECHNIQUE: Sagittal T1, T2 and STIR imaging. Axial T1 and T2 imaging. CLINICAL INFORMATION: progressive L4/L5 left radicular pain for months COMPARISON: None. FINDINGS: Mild lumbar curve. No acute compression. Disc space narrowing worse at L2-L3 with slight retrolisthes is. Retrolisthesis L3 on L4. Tiny shallow central protrusion T12-L1. L1-L2: Mild disc osteophytic ridging. Spinal canal and foramen are patent. Mild facet arthropathy. L2-L3: Slight retrolisthesis. Mild disc bulging with slight effacement of ventral thecal sac. Mild fa cet arthropathy. Mild RIGHT foraminal narrowing. Mild facet arthropathy. L3-L4: Slight retrolisthesis. Tiny central protrusion with mild central canal stenosis. Slight imping ement traversing L4 nerve roots bilaterally. Disc herniation migrates posterior to the L3 vertebral b caio. Mild facet arthropathy. LEFT eccentric disc bulging with mild LEFT foraminal narrowing. L4-L5: Mild annular bulging. Slight effacement of the ventral thecal sac. Mild facet arthropathy. Mil d foraminal narrowing. L5-S1: Mild disc bulging with slight impingement traversing LEFT S1 nerve root. Mild facet arthropath y. Mild LEFT greater than RIGHT foraminal narrowing. Partially visualized adrenal glands appear normal. RIGHT lower pole renal cyst measuring 13.3 mm. Pro minent RIGHT pericentral protrusion T9-T10 seen on the treatment technician imaging. Visualized pelvic bony structures: Normal. Paravertebral soft tissues: Normal. MR/MR lumbar spine wo con* [id number] IMPRESSION: 1. Mild central canal stenosis L3-L4 with slight impingement traversing L4 ner ve roots bilaterally. Small central protrusion at this level with slight crania l migration of disc material posterior to the L3 vertebral body. 2. Annular bulging L2-L3 with narrowing of the subarticular recess bilaterally . 3. Disc bulge L5-S1 impinges the traversing LEFT S1 nerve root in the subartic ular recess.Correlation LEFT S1 nerve root symptoms. 4. Mild bilateral L5-S1 foraminal narrowing LEFT greater than RIGHT. 5. Mild LEFT L3-L4 foraminal narrowing with a small LEFT foraminal protrusion.
== END 2023-01-01 14:47 | disposition home or self-care (01) ==
LOC: RAD 14:47
PROVIDERS: PCP Family Medicine; Visit Provider Family Medicine
DX: M48.061 Spinal stenosis, lumbar region without neurogenic claudication (principal); M25.78 Osteophyte, vertebrae
CPT/HCPCS: 72148

== ENCOUNTER → 2023-04-26 08:08 | Outpatient (BNVA) | payer OTHER, SELFPAY | PROVIDERS: PCP Family Medicine; Visit Provider Orthopaedic Surgery | DX: Z01.818 Encounter for other preprocedural examination; M48.062 Spinal stenosis, lumbar region with neurogenic claudication | CPT/HCPCS: 36415; 72110; 80053; 81001; 85025 ==

== ENCOUNTER → 2023-05-01 11:04 | Outpatient (BNVA) | payer OTHER, SELFPAY | PROVIDERS: PCP Family Medicine; Visit Provider Clinical Nurse Specialist Adult Health | DX: Z01.818 Encounter for other preprocedural examination (principal) | CPT/HCPCS: 81003; 87086 ==

== ENCOUNTER 2023-05-04 07:44 | Day surgery (SDC) | payer OTHER, SELFPAY ==
[2023-05-03 17:14] VITALS: BMI 22.8
[2023-05-04] VITALS (8 sets, daily range): BP systolic 156–186; BP diastolic 82–93; PULSE 61–85; RESP 16; TEMP 36.1–36.3; O2SAT 95–99
--- NOTE | 2023-05-04 | XR_ITS ---
WS: [id number] Lumbar spine, C-arm fluoroscopy, 05/04/2023 Clinical Data: OR pic . Left sided L4-5; and right sided L5-S1 decompressio Comparison: None. Findings: Dr. Vazquez performed a lumbar decompression. Impression: Lumbar decompression
[2023-05-04] MEDS: sodium chloride 0.9% 1,000 ML 30 ML IV (08:20)
--- NOTE | 2023-05-04 08:29 | ANES.PREANE2 ---
Pre-Anesthetic Assessment Height/Weight: Height 1.63 m Weight 60.328 kg Resp Pulse Ox O2 Del Method 16 97 Room Air 05/04/23 08:06 05/04/23 08:06 05/04/23 08:06 Operation Date: 05/04/23 09:15 Proposed Procedures p 44293: L4/5,95471: L5/S1,LEFT L4/5 L5/S1 minimally invasive decompression.(Left) - Clifton H Taylor, DO Familial anesthetic complications: none Was Beta Raissa taken within 24 hours: N/A Was Clonidine taken within 24 hours: N/A Last intake: Intake Last Liquid Date 05/03/23 Last Liquid Time 23:00 Last Solid Date 05/03/23 Last Solid Time 23:00 Social Tobacco and No alcohol Exam alert, oriented x 3 and regular rate & rhythm Airway Submandibular: within normal limits Cervical ROM: within normal limits Mallampati: Class II Dentition: false Pulmonary Chronic Obstructive Pulmonary Disease CV/HEM Hypertension Metabolic Hyperlipidemia chronic steroid Musc/skel Lower Back Pain and Osteoarthritis/DJD Neuropsych chronic pain/opioid Anesthetic Plan ASA status: 3 Anesthesia: General Medications/Allergies Home Medications Medication Instructions Recorded Confirmed Last Taken Type cyclobenzaprine 10 mg tablet 10 mg PO BID PRN Muscle Spasm 09/15/22 05/03/23 05/02/23 History famotidine 20 mg tablet See Rx Instructions .Route 01/29/23 05/03/23 05/03/23 Rx .COMPLEX #180 tabs indomethacin 50 mg capsule See Rx Instructions .Route 03/07/23 05/03/23 05/03/23 Rx .COMPLEX #60 caps lisinopril 10 mg tablet See Rx Instructions .Route 03/30/23 05/03/23 05/03/23 Rx .COMPLEX #90 tabs rosuvastatin 5 mg tablet See Rx Instructions .Route 03/30/23 05/03/23 05/03/23 Rx .COMPLEX #90 tabs ondansetron 4 mg disintegrating See Rx Instructions .Route 04/18/23 05/03/23 05/02/23 Rx tablet .COMPLEX #30 ea albuterol sulfate 90 mcg/actuation See Rx Instructions .Route 04/19/23 05/03/23 05/02/23 Rx aerosol inhaler .COMPLEX #18 grams hydrocodone 10 mg-acetaminophen 1 tab PO Q8H PRN pain 30 days #90 04/30/23 05/04/23 05/04/23 07:00 Rx 325 mg tablet tabs prednisone 20 mg tablet 20 mg PO DAILY #30 tabs 05/02/23 05/03/23 05/03/23 Rx promethazine 25 mg tablet 25 mg PO TID PRN nausea and 05/02/23 05/03/23 05/03/23 Rx vomiting #60 tabs Allergies Allergy/AdvReac Type Severity Reaction Status Date / Time No Known Allergies Allergy Verified 05/01/23 10:04 Current Medications Generic Name Dose Route Start Last Admin Trade Name Freq PRN Reason Stop Dose Admin Sodium Chloride 1,000 mls @ 30 mls/hr 05/04/23 08:00 05/04/23 08:20 Sodium Chloride 0.9% IV 05/05/23 07:59 30 mls/hr .Q24H JEROME Administration PFSH Anesthesia Medical History (Updated 05/01/23 @ 10:22 by Russell Pham NP) COPD (chronic obstructive pulmonary disease) Essential hypertension Hypercholesteremia Osteoarthritis of left hip Surgical History History of tubal ligation Hx of colonoscopy with polypectomy 10 yrs ago Family History Mother Diabetes Brother Diabetes Denies family history of Clotting disorder Anesthesia complication Bleeding disorder Social History Smoking and tobacco status: former smoker Quit status (tobacco): has quit using tobacco Year quit tobacco: 2019 Alcohol intake: never Substance/Drug Use: current Other substance/drug use details: inhaled daily Data Anesthesia Cardiac Studies: No Data to Display
--- NOTE | 2023-05-04 09:33 | W.PM.OPSUD ---
Surgery/Procedure H&P Update DATE OF PROCEDURE: May 04, 2023 DATE H&P PERFORMED: 04/26/23 H&P UPDATE INFORMATION: I have reviewed H&P completed within last 30 days, I have examined patient prior to procedure and No changes to prior documentation PLANNED PROCEDURE: Operation Date: 05/04/23 09:15 Proposed Procedures p 56774: L4/5,70647: L5/S1,LEFT L4/5 L5/S1 minimally invasive decompression.(Left) - Clifton Vazquez, DO
[2023-05-04] MEDS: ceFAZolin 2,000 MG in sodium chloride 0.9% (plus) 50 ML 100 MG IV (09:54)
[2023-05-04] MEDS: lidocaine-epi 2% 20 mL INJ INJECTION (10:18)
--- NOTE | 2023-05-04 11:04 | PM.OP ---
Operative Report Date of procedure: May 04, 2023 Pre-op diagnosis: lumbar stenosis with neurogenic claudication Post-op diagnosis: same Procedure done: 1. Left L4/5 laminectomy with partial facetectomy 2. Left L5/S1 laminectomy with partial facetectomy Surgeon: Clifton Vazquez Press Feeder Broomcorn: none Estimated blood loss (mL): 5 Procedure: 1. Left L4/5 laminectomy with partial facetectomy 2. Left L5/S1 laminectomy with partial facetectomy Patient is brought to the operative suite. After undergoing anesthesia they are placed in the prone position. All areas of impingement are well padded. Patient is then prepped and draped in the normal sterile fashion. A skin incision is made over the L4/5 level. This is confirmed under c-arm guidance. A series of dilators are passed and the tubular retractor is docked on the L4 lamina. A bovie is used to clear the soft tissue off the lamina and the L 4/5 facet joint. A high speed hemant is then used to perform the laminectomy and take down the medial aspect of the L 4/5 facet joint. A kerrison rongeure was then used to take down the remaining lamina and smooth the edge of the laminectomy up to the point where the ligamentum flavum attaches. Attention was then brought to the medial aspect of the facet joint. The remaining medial aspect of the superior and inferior aspect of the facet joint were taken down with the kerrison from the pedicle of L4 to L 5. The facet joint had significant hypertrophy. Attention was then brought to the Ligamentum Flavum. The ligament was taken down from the lamina of L4 to L5 and out medially to the remaining facet joint. The ligament was thick. The dura was then exposed. The dura was in good repair. The L4 nerve was then traced with a curette out the L4/5 foramen and found to be adequately decompressed. The L5 nerve was traced with a curette around the L5 pedicle. The lateral recess was opened with a kerrison helping to further decompress the L5 nerve. Wound is then irrigated copiously with saline and surgiflo is used to stop any bleeding. The tubular retractor is removed and the A skin incision is made over the L5/S1 level. This is confirmed under c-arm guidance. A series of dilators are passed and the tubular retractor is docked on the L5 lamina. A bovie is used to clear the soft tissue off the lamina and the L 5/S1 facet joint. A high speed hemant is then used to perform the laminectomy and take down the medial aspect of the L 5/S1 facet joint. A kerrison rongeure was then used to take down the remaining lamina and smooth the edge of the laminectomy up to the point where the ligamentum flavum attaches. Attention was then brought to the medial aspect of the facet joint. The remaining medial aspect of the superior and inferior aspect of the facet joint were taken down with the kerrison from the pedicle of L5 to S1. The facet joint had significant hypertrophy. Attention was then brought to the Ligamentum Flavum. The ligament was taken down from the lamina of L5 to S1 and out medially to the remaining facet joint. The ligament was thick. The dura was then exposed. The dura was in good repair. The L5 nerve was then traced with a curette out the L5/S1 foramen and found to be adequately decompressed. The S1 nerve was traced with a curette around the s1 pedicle. The lateral recess was opened with a kerrison helping to further decompress the S1 nerve. Wound is then irrigated copiously with saline and surgiflo is used to stop any bleeding. The tubular retractor is removed and the wound is closed with vicryl and monocryl suture. Glue is then used to protect the wound. A sterile dressing is then placed. Patient was then placed in the supine position and transferred to the PACU in stable condition.
[2023-05-04] MEDS: HYDROcodone-acetaminophen 10-325 mg Tablet 2 TAB PO (12:08)
--- NOTE | 2023-05-04 13:54 | ANE.PACU2 ---
Inpatient post-anesthesia follow up: Airway intact: Yes Vital signs: Temperature 97.0 F Pulse Rate 80 Respiratory Rate 16 Blood Pressure 161/93 Pulse Oximetry 98 Oxygen Delivery Me thod Room Air Oxygen Flow Rate Fraction of Inspir ed Oxygen Hydration adequate: Yes Nausea and vomiting: No Pain level: 3 Mental status: Baseline
== END 2023-05-04 12:37 | disposition home or self-care (01) ==
PROVIDERS: PCP Family Medicine; Visit Provider Orthopaedic Surgery
PROC: (CPT 63005; principal; 2023-05-04 09:15)
DX: M48.062 Spinal stenosis, lumbar region with neurogenic claudication (principal); J44.9 Chronic obstructive pulmonary disease, unspecified; I10 Essential (primary) hypertension; G89.29 Other chronic pain; Z79.891 Long term (current) use of opiate analgesic; Z87.891 Personal history of nicotine dependence
CPT/HCPCS: 63047; 63048; 72020; 76000; J0131; J0690; J1100; J1170; J1885; J2405; J2704; J3010; J3490; J7030

== ENCOUNTER → 2024-01-07 16:06 | Outpatient (BNVA) | payer OTHER, SELFPAY | PROVIDERS: PCP Family Medicine; Visit Provider Family Medicine | DX: I10 Essential (primary) hypertension (principal); K29.00 Acute gastritis without bleeding; K59.01 Slow transit constipation; M51.36 Other intervertebral disc degeneration, lumbar region; R23.3 Spontaneous ecchymoses | CPT/HCPCS: 80053; 85025 ==

== ENCOUNTER → 2025-04-27 16:53 | Outpatient (BNVA) | payer OTHER, SELFPAY | PROVIDERS: PCP Family Medicine; Visit Provider Family Medicine | DX: E78.00 Pure hypercholesterolemia, unspecified (principal); I10 Essential (primary) hypertension | CPT/HCPCS: 80053; 80061; 85025 ==